=== PATIENT | female | born 1960 | race Caucasian/White ===

== ENCOUNTER 2017-06-18 11:42 | Emergency (ER) | payer SELFPAY ==
[~2017-06-18] VITALS: Ht 165.1 cm; Wt 59.1 kg
[2017-06-18] MEDS ORDERED: ACETAMINOPHEN-H1 TA1 PO (11:49)
[2017-06-18] MEDS ORDERED: ALPRAZOLAM1 MG PO (11:49)
[2017-06-18] MEDS ORDERED: ESCITALOPRAM10 MG PO (11:49)
[2017-06-18] MEDS ORDERED: BACTRIM DS TAB1 EACH PO ×2 (12:32→12:38)
[2017-06-18 12:51] VITALS: BP 128/78
[2017-06-18 13:05] LABS: BASO # 0.1 (0.02-0.10); EOS # 0.2 (0.04-0.40); EOS % 2.6 % (1.0-5.0); HEMATOCRIT 40.3 % (37.0-47.0); HEMOGLOBIN 13.5 g/dL (12.5-16.0); LYMPH# 2.2 (1.50-4.00); MEAN CELL VOLUME 94 fl (78-100); MEAN CORPUSCULAR HEMOGLOBIN 32 pg (27-31); MEAN CORPUSCULAR HGB CONC 34 g/dL (33-37); MEAN PLATELET VOLUME 9.8 fl (7.4-10.4); MONO # 0.7 (0.20-0.80); NEU # 2.9 (1.40-6.50); PLATELET COUNT 332 K/mm3 (130-400); RED BLOOD COUNT 4.27 M/mm3 (4.10-5.30); RED CELL DISTRIBUTION WIDTH 11.7 % (11.5-14.5); WHITE BLOOD COUNT 6.1 K/mm3 (4.8-10.8)
[2017-06-18 13:13] LABS: ALBUMIN 4.1 g/dL (3.5-5.0); BUN/CREATININE RATIO 10.8 (6.0-26.0); CALCIUM 9.6 mg/dL (8.4-10.2); TOTAL BILIRUBIN 0.5 mg/dL (0.2-1.3)
== END 2017-06-18 12:50 | disposition home or self-care (01) ==
LOC: ED 11:42
PROVIDERS: Physician Assistant
DX: L03.011 Cellulitis of right finger (principal); G89.29 Other chronic pain; M54.9 Dorsalgia, unspecified; M79.7 Fibromyalgia